=== PATIENT | male | born 1980 | race Caucasian/White ===

== ENCOUNTER 2022-04-16 15:42 | Emergency (ER) | payer OTHER, SELFPAY ==
[2022-04-16 15:48] VITALS: BP 157/91; PULSE 87; RESP 18; TEMP 36.7; O2SAT 99
--- NOTE | 2022-04-16 15:52 | ED.URI ---
HPI - URI/Sore Throat General Chief Complaint: Upper Respiratory Infection Stated Complaint: Cold flu Time Seen by Provider: 04/16/22 15:52 Source: patient and RN notes reviewed History of Present Illness HPI Narrative: patient is a 41-year-old male who presents to urgent care with complaints of a sore throat for 2 days And clear runny nose. Patient states his was diagnosed with strep throat 5 days ago. Denies any known fevers, nausea or vomiting. patient has not taken anything [id number] for his symptoms. No other acute complaints. No acute distress noted. Patient aware of the plan of care. Some parts of this dictation were generated by voice recognition software and may contain typographical and/or grammatical inaccuracies. Related Data Home Medications Medication Instructions Recorded Confirmed levothyroxine 150 mcg tablet mcg 04/16/22 Allergies Allergy/AdvReac Type Severity Reaction Status Date / Time No Known Allergies Allergy Verified 04/16/22 15:55 Review of Systems Review of Systems: CONSTITUTIONAL: Denies fever, chills, or sweats. EYES: Denies visual changes, redness, or discharge. ENT: Reports rhinorrhea and sore throat CARDIOVASCULAR: Denies chest pain, palpitations, or edema. RESPIRATORY: Denies cough or dyspnea. GASTROINTESTINAL: Denies abdominal pain, nausea, vomiting, or diarrhea. GENITOURINARY: Denies dysuria or hematuria. SKIN: Denies rash or itching. MUSCULOSKELETAL: Denies back pain, joint pain, or myalgia. NEUROLOGIC: Denies headache, numbness, or weakness. All other systems reviewed are negative, except as documented in HPI. PMFSH Comments At the time of my signature, I reviewed and agree with the nursing past medical, surgical, social, and family history. There is no relevant family history pertinent to the patient complaint. Exam Narrative: GENERAL: This is a well-nourished, well-developed patient, in no apparent distress. HEAD: normocephalic, atraumatic. EYES: PERRL. Sclera clear/white. Vision is grossly intact. EARS: External ears normal, auditory canals clear and without drainage, TMs normal without perforation. Hearing grossly intact. NOSE: External nose normal with no obvious nasal discharge, nares without redness, no rhinorrhea. THROAT: Mucous membranes moist, moderate erythematous posterior pharynx with mild to moderate edema/erythema to bilateral tonsils with moderate postnasal drainage. NECK: Neck supple, non-tender without lymphadenopathy CARDIOVASCULAR: Regular rate and rhythm without murmurs, gallops, or rubs. RESPIRATORY: Clear to auscultation. Breath sounds equal bilaterally. No wheezes, rales, or rhonchi. SKIN: warm, intact with no suspicious lesions or rash, good texture and turgor. NEURO: awake, alert, and oriented to person, place and time. There were no obvious focal neurologic abnormalities. EXTREMITIES: No clubbing, cyanosis, or edema. Course Course Level of Care: Express Care Visit Vital Signs Vital signs: Vital Signs Temperature 98.1 F 04/16/22 15:48 Pulse Rate 87 04/16/22 15:48 Respiratory Rate 18 04/16/22 15:48 Blood Pressure 157/91 H 04/16/22 15:48 Pulse Oximetry 99 04/16/22 15:48 Oxygen Delivery Room Air 04/16/22 15:48 Temperature 98.1 F 04/16/22 15:48 Pulse Rate 87 04/16/22 15:48 Respiratory Rate 18 04/16/22 15:48 Blood Pressure 157/91 H 04/16/22 15:48 Pulse Oximetry 99 04/16/22 15:48 Oxygen Delivery Room Air 04/16/22 15:48 reviewed- Patient is informed that they may have pre-hypertension or hypertension based on a blood pressure reading in the department. I recommend the patient call the primary care provider listed on their discharge instructions or a physician of their choice this week to arrange follow-up for further evaluation of possible pre-hypertension or hypertension. MDM - URI/Sore Throat MDM Narrative Medical decision making narrative: due to the lack of resources, and abl
== END 2022-04-16 16:22 | disposition home or self-care (01) ==
PROVIDERS: Emergency Provider Nurse Practitioner Family; PCP Family Medicine
DX: J02.9 Acute pharyngitis, unspecified (principal); Z20.818 Contact with and (suspected) exposure to other bacterial communicable diseases
CPT/HCPCS: 99213; G0463